=== PATIENT | male | born 1945 | race Caucasian/White ===

== ENCOUNTER → 2022-02-01 10:13 | Outpatient (BNVA) | payer MEDICARE, SELFPAY | PROVIDERS: Referring Provider Internal Medicine; Visit Provider Internal Medicine | DX: E11.21 Type 2 diabetes mellitus with diabetic nephropathy (principal); Z79.4 Long term (current) use of insulin; Z87.891 Personal history of nicotine dependence | CPT/HCPCS: 99204 ==

== ENCOUNTER → 2022-07-22 10:01 | Outpatient (BNVA) | payer MEDICARE, SELFPAY | PROVIDERS: PCP Internal Medicine; Visit Provider Internal Medicine | DX: E11.00 Type 2 diabetes mellitus with hyperosmolarity without nonketotic hyperglycemic-hyperosmolar coma (NKHHC) (principal); E11.65 Type 2 diabetes mellitus with hyperglycemia; E78.2 Mixed hyperlipidemia | CPT/HCPCS: 99214 ==

== ENCOUNTER → 2022-10-22 10:36 | Outpatient (BNVA) | payer MEDICARE, SELFPAY | PROVIDERS: PCP Internal Medicine; Visit Provider Internal Medicine | DX: E11.9 Type 2 diabetes mellitus without complications (principal); E78.2 Mixed hyperlipidemia | CPT/HCPCS: 99214 ==

== ENCOUNTER → 2023-01-29 10:34 | Outpatient (BNVA) | payer MEDICARE, SELFPAY | PROVIDERS: PCP Internal Medicine; Visit Provider Internal Medicine | DX: E11.9 Type 2 diabetes mellitus without complications (principal); E78.2 Mixed hyperlipidemia; Z79.4 Long term (current) use of insulin | CPT/HCPCS: 99214 ==

== ENCOUNTER 2023-02-17 16:00 | Emergency (ER) | payer MEDICARE, SELFPAY ==
[2023-02-17 16:22] VITALS: BP 161/83; PULSE 87; TEMP 36.8; O2SAT 92; BMI 47.7
[2023-02-17 16:25] LABS: Glucose Point of Care 308 mg/dL (70-110)
[2023-02-17 17:40] VITALS: BP 159/91; PULSE 83; O2SAT 92
[2023-02-17 18:01] LABS: Basophils # 0.1 10^3/uL (0.0-0.1); Basophils % 0.6 %; Eosinophils # 0.1 10^3/uL (0.0-0.8); Eosinophils % 1.3 %; Hematocrit 49.9 % (42.0-52.0); Hemoglobin 16.3 g/dL (11.7-16.6); Lymphocytes # 1.8 10^3/uL (0.8-4.8); Lymphocytes % 22.7 %; Mean Corpuscular HGB Conc 32.7 g/dL (30.0-36.0); Mean Corpuscular Volume 91.9 fl (80-94); Mean Platelet Volume 10.7 fL (7.4-10.4); Monocytes # 0.6 10^3/uL (0.2-0.9); Monocytes % 7.5 %; Neutrophils # 5.31 10^3/uL (1.8-7.7); Neutrophils % 67.3 %; Nucleated Red Blood Cells % 0 %; Platelet Count 174 10^3/cmm (130-400); Red Blood Count 5.43 10^6/uL (4.1-5.3); Red Cell Distribution Width 13.2 % (12.1-15.1); White Blood Count 7.9 10^3/uL (4.0-10.0)
[2023-02-17 18:20] LABS: Ketone (Acetest) Serum Negative (Negative)
[2023-02-17 18:31] LABS: Alanine Aminotransferase 20 U/L (0-41); Albumin Level 3.9 g/dL (3.5-5.2); Alkaline Phosphatase 62 U/L (40-130); Anion Gap 16.4 (5-19); Aspartate Amino Transferase 16 U/L (0-40); Blood Urea Nitrogen 23 mg/dL (8-23); Calcium 9.7 mg/dL (8.5-10.5); Carbon Dioxide 28 mmol/L (22-29); Chloride 96 mmol/L (98-107); Globulin 3.4 g/dL (1.3-4.6); Glucose 305 mg/dL (65-115); Osmolality Calculated 297 mOsm/kg (285-295); Potassium 4.4 mmol/L (3.5-5.1); Sodium 136 mmol/L (136-145); Total Bilirubin 0.5 mg/dL (0.15-1.2); Total Protein 7.3 g/dL (6.6-8.7)
--- NOTE | 2023-02-17 20:40 | W.ED.NEUROSD ---
HPI - Neuro Symptoms/Deficit General: Chief Complaint: Neuro Symptoms/Deficit Stated Complaint: Diabetic, possible DKA Time Seen by Provider: 02/17/23 20:39 History of Present Illness: 77-year-old male patient was brought in today for concerns of abnormal behavior. Patient's caregiver reports that recent changes in his medication and has noted some increase in his blood sugar. Patient also has had some abnormal behavior with this. Patient appears nontoxic. Patient responds appropriately to questions. No abnormal focal deficits are noted. Patient has a history of diabetes, traumatic brain injury, fractures of both wrist, major depressive disorder, dementia, hyperlipidemia, obesity. Associated symptoms: Deny chest pain, nausea or vomiting Review of Systems General: Reports: 10 or more systems reviewed and unremarkable except in HPI and below Card: Denies: chest pain Resp: Denies: dyspnea GI: Denies: nausea or vomiting : Denies: difficulty urinating Musc: Denies: neck pain or back pain Skin/Breast: Denies: rash Neuro: Reports: lack of coordination Psych: Denies: anxiety or depression PFSH ED PFSH: Medical History Arthritis Brain injury Diabetes type 2, uncontrolled Fibromyalgia Skin melanoma Surgical History H/O wrist surgery History of surgery of head Family History Father Emphysema lung Mother Cancer Social History Smoking and tobacco status: never smoked Quit status (tobacco): has quit using tobacco Second hand smoke exposure: No Smoking risk assessment/counseling performed?: No Alcohol intake: never Desire information about alcohol rehabilitation?: No Counseling given: No Substance/Drug Use: never Desire information about substance/drug rehabilitation?: No Counseling given: No Adopted: No Caregiver/support person: Yes Lives independently: Yes Household members: none Housing: Manufactured/Mobile home Marital status: / Number of children: 1 Number of grandchildren: 2 Highest education level completed: Bachelor's Degree service: No Current occupational status: disabled NIH stroke score NIHSS: Level Of Consciousness - 1a: 0 Level Of Consciousness Questions - 1b: Both Correct Level Of Consciousness Commands - 1c: Both Correct Best Gaze - 2: Normal Visual Tena - 3: No Visual Loss Facial Palsy - 4: Normal Motor Arm Right - 5: No Drift Motor Arm Left - 5: No Drift Motor Leg Right - 6: No Drift Motor Leg Left - 6: No Drift Limb Ataxia - 7: Absent Sensory - 8: Normal Best Language - 9: No Aphasia Dysarthia - 10: Normal Extinction And Inattention - 11: 0 Score: Total Score: 0 Physical Exam Const: COMMON NORMALS: alert HENMT: COMMON NORMALS: normocephalic HEAD & SCALP: normocephalic Neck/C-Spine: COMMON NORMALS: full ROM Resp: COMMON NORMALS: normal respiratory effort and clear to auscultation bilaterally AUSCULTATION: clear to auscultation bilaterally Cardio: COMMON NORMALS: regular rate and regular rhythm RATE: regular rate RHYTHM: regular rhythm GI: COMMON NORMALS: non-tender Back/Pelvis: COMMON NORMALS: thoracic and lumbar spine normal to inspection Extremity: NARRATIVE EXTREMITY EXAM: Edema to bilateral lower extremities mid calf down Neuro: SENSORIUM/ORIENTATION: Yes alert Psych: COMMON NORMALS: cooperative Skin: COMMON NORMALS: turgor normal GENERAL SKIN EXAM: turgor normal Course Vital Signs: Vital signs: Vital Signs Temperature 98.3 F 02/17/23 16:22 Pulse Rate 109 H 02/17/23 21:58 Respiratory Rate 16 02/17/23 21:58 Blood Pressure 141/85 02/17/23 21:58 Pulse Oximetry 96 02/17/23 21:58 Oxygen Delivery Me thod Room Air 02/17/23 17:40 MDM - Neuro Symptoms/Deficit Medical Decision Making Patient was brought in by caregiver for concerns of change in behavior and elevation in blood sugar. No fevers been reported. Patient appears nontoxic. Patient is alert and responds appropriate questions. Vital signs are normal except for some mild elevation in blood pressure. Differential diagnosis includes but not limited to urinary tract infection, hyperglycemia, DKA, stroke syndrome. Laboratory values noted no signs of DKA. Blood glucose was elevated at 305. Anion gap was normal. No significant and decrease in carbon dioxide level. CT of the head showed no acute changes. Patient was alert and responding appropriately to questions. No signs of stroke or other acute illness was noted. Discussed with patient and caregiver the need for monitoring for fever as patient was not able to give me a urine specimen in the ER. Recommend follow-up with primary care, patient does have a appointment with primary care provider in the morning. Agreed with plan for follow-up or need to return for fever. Lab Data 02/17/23 17:34 02/17/23 17:[address] 02/17/23 20:53 IMPRESSION: 1. Large amount of diffuse white matter disease with extensive bilateral frontotemporal lobe chronic appearing atrophy. 2. Left middle temporal fossa 3.5 cm suspected arachnoid cyst with mild mass effect on the adjacent brain parenchyma, likely chronic. Laboratory Results WBC 7.9 10^3/uL (4.0-10.0) 02/17/23 17: RBC 5.43 10^6/uL (4.1-5.3) H 02/17/23 17: Hgb 16.3 g/dL (11.7-16.6) 02/17/23 17: Hct 49.9 % (42.0-52.0) 02/17/23 17: MCV 91.9 fl (80-94) 02/17/23 17: MCH 30.0 pg (28.0-34.0) 02/17/23 17: MCHC 32.7 g/dL (30.0-36.0) 02/17/23 17: RDW 13.2 % (12.1-15.1) 02/17/23 17: Plt Count 174 10^3/cmm (130-400) 02/17/23 17: MPV 10.7 fL (7.4-10.4) H 02/17/23 17: Neut % (Auto) 67.3 % 02/17/23 17: Lymph % (Auto) 22.7 % 02/17/23 17: Kleberg % (Auto) 7.5 % 02/17/23: Eos % (Auto) 1.3 % 02/17/23 17: Baso % (Auto) 0.6 % 02/17/23: Neut # (Auto) 5.31 10^3/uL (1.8-7.7) 02/17/23 17: Lymph # (Auto) 1.8 10^3/uL (0.8-4.8) 05/15/23 17:34 Kleberg # (Auto) 0.6 10^3/uL (0.2-0.9) 02/17/23 17:34 Eos # (Auto) 0.1 10^3/uL (0.0-0.8) 02/17/23 17:34 Baso # (Auto) 0.1 10^3/uL (0.0-0.1) 02/17/23 17:34 Nucleated RBC % (auto) 0 % 02/17/23 17:34 Nucleated RBCs # 0.0 /100WBC 02/17/23 17:34 Sodium 136 mmol/L (136-145) 02/17/23 17:34 Potassium 4.4 mmol/L (3.5-5.1) 02/17/23 17:34 Chloride 96 mmol/L (98-107) L 02/17/23 17:34 Carbon Dioxide 28 mmol/L (22-29) 02/17/23 17:34 Anion Gap 16.4 (5-19) 02/17/23 17:34 BUN 23 mg/dL (8-23) 02/17/23 17:34 Creatinine 0.8 mg/dL (0.7-1.2) 02/17/23 17:34 GFR Calculation Not Reportable 02/17/23 17:34 Glucose 305 mg/dL (65-115) H 02/17/23 17:34 POC Glucose 308 mg/dL (70-110) H 02/17/23 16:21 Calculated Osmolality 297 mOsm/kg (285-295) H 02/17/23 17:34 Calcium 9.7 mg/dL (8.5-10.5) 02/17/23 17:34 Total Bilirubin 0.5 mg/dL (0.15-1.2) 02/17/23 17:34 AST 16 U/L (0-40) 02/17/23 17:34 ALT 20 U/L (0-41) 02/17/23 17:34 Alkaline Phosphatase 62 U/L (40-130) 02/17/23 17:34 Total Protein 7.3 g/dL (6.6-8.7) 02/17/23 17:34 Albumin 3.9 g/dL (3.5-5.2) 02/17/23 17:34 Globulin 3.4 g/dL (1.3-4.6) 02/17/23 17:34 Serum Ketones Negative (Negative) 02/17/23 17:34 Discharge Plan Discharge Patient Disposition: Home Clinical Impression: Confusion Hyperglycemia due to type 2 diabetes mellitus Qualifiers: Diabetes mellitus group home insulin use: unspecified group home insulin use status Qualified Code(s): E11.65 - Type 2 diabetes mellitus with hyperglycemia Condition: Stable Prescriptions: No Action ketoconazole 2 % cream 1 applic topical DAILY PRN Eliquis 5 mg tablet 5 mg PO BID (DME) ReliOn Prime Test Strips Strip See Rx Instructions .Route Rx Instructions: As directed (DME) blood-glucose meter [ReliOn Prime Meter] Misc See Rx Instructions .Route Rx Instructions: As directed Eucerin Intensive Repair Cream Cream topical escitalopram oxalate 5 mg tablet 15 mg PO DAILY furosemide 40 mg tablet 40 mg PO DAILY (DME) E-Z Ject Lancets 32 gauge misc See Rx Instructions .Route Rx Instructions: As directed montelukast 10 mg tablet 10 mg PO DAILY multivitamin Tablet 1 tab PO DAILY risperidone [Risperdal] 1 mg tablet 1 mg PO DAILY risperidone [Risperdal] 0.5 mg tablet 0.5 mg PO DAILY Senna Plus 8.6-50 mg capsule 1 tab-cap PO BID PRN Ozempic 0.25 mg or 0.5 mg(2 mg/1.5 mL) pen injector 0.25 mg SUBCUT Q7D Qty: 8 2RF Rx Instructions: o.25mg weekly for 1month and 0.5mg weekly and continue rosuvastatin 5 mg tablet 5 mg PO DAILY Qty: 90 3RF ketoconazole 2 % shampoo 1 applic topical ONCE Qty: 120 6RF Rx Instructions: Lather into scalp 2-3 times weekly. Allow to sit on scalp 5 minutes before rinsing ketoconazole 2 % cream 1 applic topical BID Qty: 60 2RF Rx Instructions: Apply twice daily to affected areas for 3 weeks then as needed for flares (DME) Dexcom G6 Ticket Chopper Assembler Misc See Rx Instructions .Route Qty: 1 0RF Rx Instructions: Check BS 4-6 times a day. (DME) Dexcom G6 Sensor Device See Rx Instructions .Route Qty: 9 3RF Rx Instructions: Change every 10 days. (DME) Dexcom G6 Transmitter Device See Rx Instructions .Route Qty: 3 3RF Rx Instructions: Change every 90 days. Levemir FlexTouch U-100 Insuln 100 unit/mL (3 mL) insulin pen 70 unit SUBCUT DAILY 42 Days Qty: 30 1RF Rx Instructions: 70 units once daily Discharge Orders: Discharge ED (Routine); Ordered 02/17/23 Ordered By: Andrew Kirk Referrals: Jewell Ruiz [Primary Care Provider] - Discharge Diet: Usual diet Discharge Activity: Increase activity as tolerated Patient Instructions: Diabetic Hyperglycemia (ED) Activity Restrictions/Additional Instructions: Continue with routine medication and treatment plan. Healthy diet and exercise. Encourage plenty of fluids. Follow-up with primary care or specialist regarding further treatment options. Return to emergency department for worsening symptoms such as increased shortness of breath, chest pain, high fever greater than 100.4, or new concerns. Coding Level of Care Code ED Preassembler And Inspector for [facility] Watson
--- NOTE | 2023-02-17 20:53 | CTR_ITS ---
PROCEDURE INFORMATION: Exam: CT Head Without Contrast Exam date and time: 02/17/2023 9:05 PM Age: 77 years old Clinical indication: Altered mental status/memory loss; Confusion or disorientation; Prior surgery; Surgery date: 6+ months; Surgery type: Surgery due to brain injury; Patient HX: AMS. Patient seems somewhat confused. ; Additional info: Abnormal behavior TECHNIQUE: Imaging protocol: Computed tomography of the head without contrast. Radiation optimization: All CT scans at this facility use at least one of these dose optimization techniques: automated exposure control; mA and/or kV adjustment per patient size (includes targeted exams where dose is matched to clinical indication); or iterative reconstruction. REPORTING DATA: Count of CT and Cardiac NM exams in prior 12 months: This patient has received 0 known CTs and 0 known cardiac nuclear medicine studies in the 12 months prior to the current study. COMPARISON: No relevant prior studies available. RADIATION DOSE METRICS: Total DLP (mGy-cm): 1147.89 FINDINGS: Brain: Large amount of diffuse white matter disease with extensive bilateral frontotemporal lobe chronic appearing atrophy. Cerebral ventricles: No ventriculomegaly. Paranasal sinuses: Visualized sinuses are unremarkable. No fluid levels. Mastoid air cells: Visualized mastoid air cells are well aerated. Bones/joints: Left middle temporal fossa 3.5 cm suspected arachnoid cyst with mild mass effect on the adjacent brain parenchyma, likely chronic. Soft tissues: Unremarkable. CT/CT head wo con* [id number] IMPRESSION: 1. Large amount of diffuse white matter disease with extensive bilateral frontotemporal lobe chronic appearing atrophy. 2. Left middle temporal fossa 3.5 cm suspected arachnoid cyst with mild mass effect on the adjacent brain parenchyma, likely chronic.
[2023-02-17 21:16] VITALS: BP 157/86; PULSE 77; RESP 16; O2SAT 96
[2023-02-17 21:58] VITALS: BP 141/85; PULSE 109; RESP 16; O2SAT 96
== END 2023-02-17 21:59 | disposition home or self-care (01) ==
PROVIDERS: Emergency Medicine; Emergency Provider Nurse Practitioner Family; PCP Internal Medicine
DX: E11.65 Type 2 diabetes mellitus with hyperglycemia (principal); R41.0 Disorientation, unspecified; Z79.01 Long term (current) use of anticoagulants; Z79.4 Long term (current) use of insulin; Z87.891 Personal history of nicotine dependence
CPT/HCPCS: 36415; 36416; 70450; 80053; 82009; 82962; 85025; 99284

== ENCOUNTER → 2023-03-13 13:28 | Outpatient (BNVA) | payer MEDICARE, SELFPAY | PROVIDERS: PCP Internal Medicine; Visit Provider Internal Medicine | DX: E11.9 Type 2 diabetes mellitus without complications (principal); E78.2 Mixed hyperlipidemia; Z79.4 Long term (current) use of insulin | CPT/HCPCS: 99214 ==

== ENCOUNTER 2023-05-31 18:41 | Emergency (ER) | payer MEDICARE, SELFPAY ==
[2023-05-31 18:46] VITALS: BP 148/77; PULSE 96; RESP 16; TEMP 36.8; O2SAT 95; BMI 47.5
--- NOTE | 2023-05-31 19:35 | XRR_ITS ---
PROCEDURE INFORMATION: Exam: XR Abdomen Exam date and time: 05/31/2023 10:52 PM Age: 78 years old Clinical indication: Abdominal pain; Additional info: Constipation TECHNIQUE: Imaging protocol: Radiologic exam of the abdomen. Views: Frontal supine view of the abdomen. 1 View. COMPARISON: No relevant prior studies available. FINDINGS: Gastrointestinal tract: Nonobstructed bowel-gas pattern. Large stool burden. Vasculature: Vascular calcifications. Pelvic phleboliths. Bones/joints: Mild bilateral hip osteoarthrosis. XR/XR abdomen 1V* [id number] IMPRESSION: Large stool burden. Nonobstructive bowel gas pattern.
[2023-05-31 20:49] LABS: Basophils # 0.1 10^3/uL (0.0-0.1); Basophils % 0.4 %; Eosinophils # 0.1 10^3/uL (0.0-0.8); Hematocrit 45.3 % (37-53); Lymphocytes % 17.5 %; Mean Corpuscular HGB Conc 33.6 g/dL (30-55); Mean Corpuscular Hemoglobin 30.8 pg (27-33); Mean Corpuscular Volume 91.7 fl (82-101); Mean Platelet Volume 10.2 fL (7.4-10.4); Monocytes # 0.8 10^3/uL (0.2-0.9); Monocytes % 6.8 %; Neutrophils % 73.8 %; Nucleated Red Blood Cells % 0 %; Platelet Count 183 10^3/cmm (157-399); Red Blood Count 4.94 10^6/uL (3.85-5.65); Red Cell Distribution Width 13.5 % (12.1-15.1); White Blood Count 11.38 10^3/uL (3.29-11.43)
[2023-05-31 21:22] LABS: Alanine Aminotransferase 29 U/L (0-41); Albumin Level 3.7 g/dL (3.5-5.2); Alkaline Phosphatase 58 U/L (40-130); Anion Gap 11.1 (5-19); Aspartate Amino Transferase 33 U/L (0-40); Blood Urea Nitrogen 13 mg/dL (8-23); Calcium 9.4 mg/dL (8.5-10.5); Carbon Dioxide 30 mmol/L (22-29); Chloride 100 mmol/L (98-107); Globulin 3.4 g/dL (1.3-4.6); Glucose 70 mg/dL (65-115); Osmolality Calculated 283 mOsm/kg (285-295); Potassium 4.1 mmol/L (3.5-5.1); Sodium 137 mmol/L (136-145); Total Bilirubin 0.4 mg/dL (0.15-1.2); Total Protein 7.1 g/dL (6.6-8.7)
[2023-05-31] MEDS: Fleet Enema 133 mL Enema PR (23:53)
--- NOTE | 2023-06-01 00:24 | ED_ITS ---
HPI - Abdominal Pain General: Chief Complaint: Abdominal Pain Stated Complaint: impaction, abdomen pain Time Seen by Provider: 05/31/23 22:53 Source: patient and other (Neighbor) Mode of arrival: wheelchair Limitations: no limitations History of Present Illness: Patient presents to the emergency department today for complaints of generalized abdominal discomfort due to constipation. Patient has been dealing with constipation since starting Ozempic and just recently had a dosing increase. He states has been several days since he had a bowel movement. He denies vomiting or fevers. Neighbor indicates patient has senna and has recently started using probiotics. They have also been trying to increase water intake. Review of Systems General: Reports: 10 or more systems reviewed and unremarkable except in HPI and below PFSH ED PFSH: Medical History Arthritis Brain injury Diabetes type 2, uncontrolled Fibromyalgia Skin melanoma Surgical History H/O wrist surgery History of surgery of head Family History Father Emphysema lung Mother Cancer Social History Smoking and tobacco status: never smoked Quit status (tobacco): has quit using tobacco Second hand smoke exposure: No Smoking risk assessment/counseling performed?: No Alcohol intake: never Desire information about alcohol rehabilitation?: No Counseling given: No Substance/Drug Use: never Desire information about substance/drug rehabilitation?: No Counseling given: No Adopted: No Caregiver/support person: Yes Lives independently: Yes Household members: none Housing: Manufactured/Mobile home Marital status: / Number of children: 1 Number of grandchildren: 2 Highest education level completed: Bachelor's Degree service: No Current occupational status: disabled Physical Exam Const: COMMON NORMALS: no acute distress, patient oriented x3 and alert HENMT: COMMON NORMALS: normocephalic, atraumatic, hearing grossly normal bilaterally and moist oral mucous membranes HEAD & SCALP: normocephalic and atraumatic Eye: COMMON NORMALS: Equal, round and reactive pupils present, EOMs intact bilaterally and conjunctivae normal CONJUNCTIVA: Yes conjunctivae normal PUPIL: Yes Equal, round and reactive pupils present Neck/C-Spine: COMMON NORMALS: full ROM and no JVD Lymph: LYMPHATIC: no lymphadenopathy noted Resp: COMMON NORMALS: normal respiratory effort, No retractions, No use of accessory muscles and clear to auscultation bilaterally AUSCULTATION: clear to auscultation bilaterally Cardio: COMMON NORMALS: no JVD, regular rate and regular rhythm RATE: regular rate RHYTHM: regular rhythm GI: OTHER: Bowel sounds difficult to hear due to large abdominal pannus. But abdomen is soft. : COMMON NORMALS: Yes no CVA tenderness BLADDER/KIDNEY EXAM: Yes no CVA tenderness Back/Pelvis: COMMON NORMALS: no CVA tenderness, no thoracic nor lumbar tender ness and thoraco-lumbar ROM normal Extremity: COMMON NORMALS: normal to inspection, full ROM and capillary refill normal Neuro: COMMON NORMALS: patient oriented x3 SENSORIUM/ORIENTATION: Yes alert Psych: COMMON NORMALS: mental status grossly normal, Normal thought process present, cooperative, normal affect and activity/motor behavior normal THOUGHT PROCESS: Normal thought process present Skin: COMMON NORMALS: no rashes or lesions noted and no wounds GENERAL SKIN EXAM: no rashes or lesions noted Course Vital Signs: Vital signs: Vital Signs Temperature 98.2 F 05/31/23 18:46 Pulse Rate 74 06/01/23 03:21 Respiratory Rate 18 06/01/23 03:21 Blood Pressure 143/81 06/01/23 03:21 Pulse Oximetry 95 06/01/23 00:53 Oxygen Delivery Me thod Room Air 06/01/23 00:53 MDM - Abdominal Pain Medical Decision Making Patient presents to the emergency department today complaining of difficulty with bowel movements. Patient's last bowel movement was a couple of days ago and he does take medication which makes him constipated. Patient states he has been trying his medicine at home without noticeable improvement. Patient requested attempted intervention here in the emergency department and enema was provided. However, patient barely left the enema material in the rectum and distal colon before getting up to go to the commode. He was not successful in passing stool. I discussed with the nurse about administering a suppository but , patient is to remain in bed without getting up for a bowel movement for at least 15 to 20 minutes. Patient attempted stooling again and this time was successful with a large amount of stool produced. Patient was encouraged to continue pushing fluids and I did provide him a prescription for fleets enema though, explained these are available [id number] as well as suppositories. Encouraged him to use enemas or suppositories if he has decreased regularity to prevent worsening of constipation similar to the findings here today. Patient was given return precautions for any new onset fever, vomiting, or inability to produce bowel movements with treatment. Encouraged him to talk to his primary care doctor regarding constipation issues. Patient verbalized understanding and agreement to treatment plan. Differential Diagnosis Likely abdominal pain and constipation; Unlikely gastroenteritis or small bowel obstruction Lab Data 05/31/23 20:44 05/31/23 20:44 Labs/Radiology: Radiology Impressions Abdomen X-Ray 05/31/23 19:35 IMPRESSION: Large stool burden. Nonobstructive bowel gas pattern. Laboratory Results WBC 11.38 10^3/uL (3.29-11.43) 05/31/23 20:44 RBC 4.94 10^6/uL (3.85-5.65) 05/31/23 20:44 Hgb 15.20 g/dL (11.27-16.99) 05/31/23 20:44 Hct 45.3 % (37-53) 05/31/23 20:44 MCV 91.7 fl (82-101) 05/31/23 20:44 MCH 30.8 pg (27-33) 05/31/23 20:44 MCHC 33.6 g/dL (30-55) 05/31/23 20:44 RDW 13.5 % (12.1-15.1) 05/31/23 20:44 Plt Count 183 10^3/cmm (157-399) 05/31/23 20:44 MPV 10.2 fL (7.4-10.4) 05/31/23 20:44 Neut % (Auto) 73.8 % 05/31/23 20:44 Lymph % (Auto) 17.5 % 05/31/23 20:44 Porter % (Auto) 6.8 % 05/31/23 20:44 Eos % (Auto) 1.0 % 05/31/23 20:44 Baso % (Auto) 0.4 % 05/31/23 20:44 Neut # (Auto) 8.40 10^3/uL (1.8-7.7) H 05/31/23 20:44 Lymph # (Auto) 2.0 10^3/uL (0.8-4.8) 05/31/23 20:44 Porter # (Auto) 0.8 10^3/uL (0.2-0.9) 05/31/23 20:44 Eos # (Auto) 0.1 10^3/uL (0.0-0.8) 05/31/23 20:44 Baso # (Auto) 0.1 10^3/uL (0.0-0.1) 05/31/23 20:44 Nucleated RBC % (auto) 0 % 05/31/23 20:44 Nucleated RBCs # 0.0 /100WBC 05/31/23 20:44 Sodium 137 mmol/L (136-145) 05/31/23 20:44 Potassium 4.1 mmol/L (3.5-5.1) 05/31/23 20:44 Chloride 100 mmol/L (98-107) 05/31/23 20:44 Carbon Dioxide 30 mmol/L (22-29) H 05/31/23 20:44 Anion Gap 11.1 (5-19) 05/31/23 20:44 BUN 13 mg/dL (8-23) 05/31/23 20:44 Creatinine 0.9 mg/dL (0.7-1.2) 05/31/23 20:44 GFR Calculation Not Reportable 05/31/23 20:44 Glucose 70 mg/dL (65-115) 05/31/23 20:44 Calculated Osmolality 283 mOsm/kg (285-295) L 05/31/23 20:44 Calcium 9.4 mg/dL (8.5-10.5) 05/31/23 20:44 Total Bilirubin 0.4 mg/dL (0.15-1.2) 05/31/23 20:44 AST 33 U/L (0-40) 05/31/23 20:44 ALT 29 U/L (0-41) 05/31/23 20:44 Alkaline Phosphatase 58 U/L (40-130) 05/31/23 20:44 Total Protein 7.1 g/dL (6.6-8.7) 05/31/23 20:44 Albumin 3.7 g/dL (3.5-5.2) 05/31/23 20:44 Globulin 3.4 g/dL (1.3-4.6) 05/31/23 20:44 Discharge Plan Discharge Patient Disposition: Home Clinical Impression: Constipation Condition: Stable Prescriptions: New Fleet Enema 19-7 gram/118 mL enema 118 ml TN DAILY PRN (Reason: constipation) Qty: 133 0RF No Action ketoconazole 2 % cream 1 applic topical DAILY PRN Eliquis 5 mg tablet 5 mg PO BID (DME) ReliOn Prime Test Strips Strip See Rx Instructions .Route Rx Instructions: As directed (DME) blood-glucose meter [ReliOn Prime Meter] Misc See Rx Instructions .Route Rx Instructions: As directed Eucerin Intensive Repair Cream Cream topical escitalopram oxalate 5 mg tablet 15 mg PO DAILY furosemide 40 mg tablet 40 mg PO DAILY (DME) E-Z Ject Lancets 32 gauge misc See Rx Instructions .Route Rx Instructions: As directed montelukast 10 mg tablet 10 mg PO DAILY multivitamin Tablet 1 tab PO DAILY risperidone [Risperdal] 1 mg tablet 1 mg PO DAILY risperidone [Risperdal] 0.5 mg tablet 0.5 mg PO DAILY Senna Plus 8.6-50 mg capsule 1 tab-cap PO BID PRN rosuvastatin 5 mg tablet 5 mg PO DAILY Qty: 90 3RF ketoconazole 2 % shampoo 1 applic topical ONCE Qty: 120 6RF Rx Instructions: Lather into scalp 2-3 times weekly. Allow to sit on scalp 5 minutes before rinsing ketoconazole 2 % cream 1 applic topical BID Qty: 60 2RF Rx Instructions: Apply twice daily to affected areas for 3 weeks then as needed for flares (DME) Dexcom G6 Supervisor Asbestos Removal Misc See Rx Instructions .Route Qty: 1 0RF Rx Instructions: Check BS 4-6 times a day. (DME) Dexcom G6 Sensor Device See Rx Instructions .Route Qty: 9 3RF Rx Instructions: Change every 10 days. (DME) Dexcom G6 Transmitter Device See Rx Instructions .Route Qty: 3 3RF Rx Instructions: Change every 90 days. Ozempic 2 mg/dose (8 mg/3 mL) pen injector See Rx Instructions .ROUTE .COMPLEX Qty: 3 0RF Dose Instruction: INJECT 2MG UNDER SKIN EVERY 7 DAYS X 1 MONTH Rx Instructions: INJECT 2MG UNDER SKIN EVERY 7 DAYS X 1 MONTH Ozempic 1 mg/dose (4 mg/3 mL) pen injector See Rx Instructions .ROUTE .COMPLEX Qty: 3 0RF Dose Instruction: INJECT 1MG UNDER SKIN EVERY 7 DAYS X 1 MONTH Rx Instructions: INJECT 1MG UNDER SKIN EVERY 7 DAYS X 1 MONTH Levemir FlexPen 100 unit/mL (3 mL) insulin pen See Rx Instructions .ROUTE .COMPLEX Qty: 69 0RF Dose Instruction: INJECT 70 UNITS UNDER THE SKIN ONCE DAILY FOR 6 WEEKS Rx Instructions: INJECT 230 UNITS UNDER THE SKIN ONCE DAILY Toujeo Max U-300 SoloStar 300 unit/mL (3 mL) insulin pen 230 unit SUBCUT DAILY 30 Days Qty: 24 0RF Discharge Orders: Discharge ED (Routine); Ordered 06/01/23 Ordered By: Deja Marquis Referrals: Jewell Ruiz [Primary Care Provider] - Discharge Diet: Usual diet Discharge Activity: Resume usual activity Patient Instructions: Constipation (ED), Fleet Enema (ED) Activity Restrictions/Additional Instructions: X-ray today confirms a large fecal burden. It may take several days to fully empty the colon of the excessive stool burden. Continue to take your senna as prescribed. I have also provided you a prescription for a another Fleet enema however, these are also available for purchase [id number] including suppositories which may be required off-and-on for times where you are having difficulty with daily bowel movements. I do recommend letting your doctor know that you are having more issues with constipation as they may wish to either change your medication for stooling or, may choose to discuss altering your Ozempic. If you develop fever, blood per rectum or do not have response to enemas or suppositories in the future, we do recommend being seen and reevaluated. Coding Level of Care Code ED Central Office Equipment Installer for Carlos Watson
[2023-06-01 00:53] VITALS: BP 130/89; PULSE 95; RESP 18; O2SAT 95
[2023-06-01] MEDS: glycerin adult supp 1 EACH PR (01:36)
--- NOTE | 2023-06-01 03:00 | PC.NURSE ---
Patient has had several large bms. Provider notified.
[2023-06-01 03:21] VITALS: BP 143/81; PULSE 74; RESP 18
== END 2023-06-01 03:25 | disposition home or self-care (01) ==
PROVIDERS: Emergency Medicine; Emergency Provider Physician Assistant; PCP Internal Medicine
DX: K59.00 Constipation, unspecified (principal); Z79.01 Long term (current) use of anticoagulants; Z79.4 Long term (current) use of insulin; E11.9 Type 2 diabetes mellitus without complications; Z87.891 Personal history of nicotine dependence
CPT/HCPCS: 36415; 74018; 80053; 85025; 99284

== ENCOUNTER → 2023-06-17 13:36 | Outpatient (BNVA) | payer MEDICARE, SELFPAY | PROVIDERS: PCP Internal Medicine; Visit Provider Internal Medicine | DX: E11.9 Type 2 diabetes mellitus without complications (principal); E78.2 Mixed hyperlipidemia; Z79.4 Long term (current) use of insulin | CPT/HCPCS: 99214 ==

== ENCOUNTER → 2023-09-17 10:34 | Outpatient (BNVA) | payer MEDICARE, SELFPAY | PROVIDERS: PCP Internal Medicine; Visit Provider Internal Medicine | DX: E11.9 Type 2 diabetes mellitus without complications (principal); E78.2 Mixed hyperlipidemia; Z79.4 Long term (current) use of insulin; Z79.85 Long-term (current) use of injectable non-insulin antidiabetic drugs | CPT/HCPCS: 99214 ==

== ENCOUNTER → 2023-10-16 10:47 | Outpatient (BNVA) | payer MEDICARE, SELFPAY | PROVIDERS: PCP Internal Medicine; Visit Provider Nurse Practitioner Family | DX: L57.0 Actinic keratosis (principal); L21.8 Other seborrheic dermatitis; L91.8 Other hypertrophic disorders of the skin; L82.0 Inflamed seborrheic keratosis; L57.8 Other skin changes due to chronic exposure to nonionizing radiation; D22.4 Melanocytic nevi of scalp and neck; L82.1 Other seborrheic keratosis | CPT/HCPCS: 11200; 17000; 17110; 99214 ==

== ENCOUNTER → 2023-12-25 09:46 | Outpatient (BNVA) | payer MEDICARE, SELFPAY | PROVIDERS: PCP Internal Medicine; Visit Provider Internal Medicine | DX: E11.9 Type 2 diabetes mellitus without complications (principal); E78.2 Mixed hyperlipidemia | CPT/HCPCS: 99214 ==

== ENCOUNTER → 2025-05-27 14:15 | Outpatient (BNVA) | payer MEDICARE, SELFPAY | PROVIDERS: PCP Internal Medicine; Visit Provider Nurse Practitioner Family | DX: L21.8 Other seborrheic dermatitis (principal); L82.1 Other seborrheic keratosis; L81.4 Other melanin hyperpigmentation; L57.8 Other skin changes due to chronic exposure to nonionizing radiation; L91.8 Other hypertrophic disorders of the skin; D22.4 Melanocytic nevi of scalp and neck; D48.5 Neoplasm of uncertain behavior of skin; L57.0 Actinic keratosis | CPT/HCPCS: 11102; 17000; 99214 ==